=== PATIENT | male | born 1955 | race Caucasian/White ===

== ENCOUNTER 2016-09-23 22:41 | Observation (INO) | payer BC ==
[~2016-09-23] VITALS: Ht 167.6 cm; Wt 94.8 kg
[~2016-09-23 22:41] MED LIST: ATARAX,VISTARIL25 MG PO
[2016-09-23 23:15] LABS: HEMATOCRIT 42.9 % (38.0-50.0); MCH 28.6 PG (29.0-34.0); MCHC 34.3 G/DL (30.0-36.0); MCV 83.5 FL (86-99); MEAN PLAT.VOLUME 10.2 uM^3 (9.0-12.4); PLATELET COUNT 185 K/uL (156-360); RBC DIS.WIDTH-CV 12.4 % (11.8-14.6); RBC DIS.WIDTH-SD 37.4 % (39-53); RED BLOOD COUNT 5.14 M/uL (4.00-5.50); WHITE BLOOD COUNT 8.8 K/uL (4.1-10.2)
[2016-09-23 23:24] LABS: CHLORIDE 107 mEq/L (99-109); POTASSIUM 3.5 mEq/L (3.7-5.4); SODIUM 142 mEq/L (136-147)
[2016-09-23 23:26] LABS: GLUCOSE 119 mg/dL (70-99)
[2016-09-23 23:28] LABS: ANION GAP 12 MEQ/L (2-14); TOTAL BILIRUBIN 0.6 mg/dL (0.0-1.0)
[2016-09-23 23:30] LABS: ALKALINE PHOSPHATASE 62 IU/L (3-129); GFR ESTIMATE (CALCULATED) > 59 mL/min/
[2016-09-23 23:31] LABS: UREA NITROGEN (BUN) 28 mg/dL (9-23)
[2016-09-23 23:32] LABS: DIRECT BILIRUBIN 0.2 mg/dL (0.0-0.3)
[2016-09-23 23:34] LABS: LIPASE 41 U/L (1.0-51.0)
[2016-09-23 23:35] LABS: TROP-I INTERPRETATION NEGATIVE; TROPONIN-I < 0.01 ng/mL (0.0-0.30)
[2016-09-24] MEDS ORDERED: LISINOPRIL20 MG PO (00:37)
[2016-09-24] MEDS ORDERED: LO-DOSE ASPIRIN81 M1 PO (00:37)
[2016-09-24 02:30] VITALS: BP 145/76
[2016-09-24 04:00] VITALS: BP 131/78
[2016-09-24 06:18] LABS: TROP-I INTERPRETATION NEGATIVE; TROPONIN-I < 0.01 ng/mL (0.0-0.30)
[2016-09-24 07:33] VITALS: BP 110/68
[2016-09-24 11:47] VITALS: BP 111/73
[2016-09-24 13:16] LABS: TROP-I INTERPRETATION NEGATIVE; TROPONIN-I < 0.01 ng/mL (0.0-0.30)
[2016-09-24] MEDS ORDERED: ATORVASTATIN CA40 MG PO (14:19)
== END 2016-09-24 15:07 | disposition home or self-care (01) ==
LOC: EME 22:41 → EDOF 09-24 01:40 → 5WEST 09-24 02:31
PROVIDERS: Hospitalist
DX: R07.89 Other chest pain (principal); I10 Essential (primary) hypertension; R10.13 Epigastric pain; K21.9 Gastro-esophageal reflux disease without esophagitis; N20.0 Calculus of kidney; E88.89 Other specified metabolic disorders; Z79.82 Long term (current) use of aspirin
CPT/HCPCS: 71020; 74176; 80048; 80076; 83690; 84484; 85027; 93005; 99281; 99285; G0378; J2060; J2270; J2405; J7030